=== PATIENT | male | born 1990 | race Caucasian/White ===

== ENCOUNTER 2020-04-26 10:13 | Emergency (ER) | payer MEDICAID, SELFPAY ==
[2020-04-26 10:14] VITALS: BP 138/94; PULSE 108; RESP 17; TEMP 36.9; O2SAT 97; BMI 24.5
--- NOTE | 2020-04-26 10:33 | RAD_ITS ---
STUDY: X-RAY CHEST REASON FOR EXAM: Male, 30 years old. Patient states that he was released from correction 14 days ago. Started sun day having headaches, cough, change in smell -- Patient states that the shelter house would not accept him and now needs to be tested or PO states he will be going back to correction. -- needs paperwork faxed to his PO TECHNIQUE: Single AP portable view of the chest. COMPARISON: None. FINDINGS: The lungs are clear and expanded. There is no demonstrated pleural abnormality. Normal size heart. Normal mediastinum and kinga. Normal visualized pulmonary arteries. Normal visualized aortic arch and descending thoracic aorta. Normal visualized thoracic spine. Normal visualized ribs, clavicles, and shoulders. There is no demonstrated abnormality of the visualized soft tissue structures of the upper abdomen. RAD/Chest 1 View (Portable) IMPRESSION: Normal x-ray examination of the chest. Electronically Signed: Harish Nieto, at 11:19 EDT , Service support ,
--- NOTE | 2020-04-26 10:35 | ED.DCSUM_ITS ---
- ER Visit Summary Date of Service: 04/26/20 Chief Complaint: Needs COVID testing History of Present Illness: The patient is a 30 M presenting stating that he needs to be tested for COVID. Patient was released from correction on April 12. He has been in quarantine at his grandparents house since that time. He was scheduled to go to a retirement house today. He started having symptoms of mild headache, cough, diarrhea, decreased smell, and subjective fever on Thursday. He states the retirement house will not take him without a COVID test. He denies shortness of breath. He states while in correction he worked in [employer] and was exposed to confirmed cases of COVID. Physical Examination: Vitals are stable. Patient is afebrile. Alert no acute distress. 97% on room air. HEENT exam is unremarkable. Neck is supple. Lungs are clear and equal bilaterally. Heart is regular rate and rhythm. Abdomen is soft nontender nondistended. Extremities are unremarkable. Skin is warm and dry. Remainder of exam is unremarkable. Emergency Department Course and Treatment: Chest xray shows normal x-ray examination of the chest. COVID negative. Despite negative COVID testing, high suspicion for COVID. He was given Tylenol. On reevaluation he is resting comfortably. His pulse ox is 98% on room air. He will be discharged with the police. Disposition: Discharge Impression: Viral syndrome, suspect COVID This note was generated with [employer] dictation software. It may contain incorrect words, spelling, and punctuation that were not noted in review of the chart prior to signing ED Disposition - Plan for ED Patient: Referrals: Care Physician,No Primary [Primary Care Provider] -
--- NOTE | 2020-04-26 10:44 | ED.RN ---
PT REQUESTING THAT WE CONTACT HIS PO, ATTEMPTED TO CALL BUT NO ANSWER. LEFT A MESSAGE FOR KAVITA WALTER TO CALL THE EMERGENCY DEPARTMENT. PHONE NUMBER FOR KAVITA [phone], FAX [phone].
--- NOTE | 2020-04-26 13:43 | ED.DEP ---
ED Disposition - Plan for ED Patient: Instructions: ED Upper Resp Infec No Abx Tx Referrals: Care Physician,No Primary [Primary Care Provider] -
[2020-04-26] MEDS: Acetaminophen 500 MG Tablet 1000 MG PO (14:45)
[2020-04-26 14:46] VITALS: BP 157/98; PULSE 79; RESP 18; O2SAT 99
--- NOTE | 2020-04-26 15:03 | NURSING ---
FAXED COVID TEST AND DR JALLOH TO [facility] [employer].
== END 2020-04-26 14:00 | disposition home or self-care (01) ==
PROVIDERS: Emergency Provider Emergency Medicine
DX: B34.9 Viral infection, unspecified (principal); Z20.828 Contact with and (suspected) exposure to other viral communicable diseases
CPT/HCPCS: 71045; 87635; 99283; U0004

== ENCOUNTER 2020-07-22 22:11 | Emergency (ER) | payer MEDICAID, SELFPAY ==
[2020-07-22 22:11] VITALS: BP 145/90; PULSE 105; RESP 16; TEMP 36.3; O2SAT 95; BMI 25.1
--- NOTE | 2020-07-22 22:37 | ED.DCSUM_ITS ---
- ER Visit Summary Date of Service: 07/22/20 Chief Complaint: Abdominal pain History of Present Illness: The patient is a 30 M presenting with abdominal pain and rectal pain. Patient states this has been intermittent over the past 6 years. He states he gets episodes where he has severe lower abdominal pain and rectal pain. He states the pain is worsened with eating. He has had constipation. Denies blood in his stool. Denies history of anal sex or foreign bodies. Denies discharge or rash. Denies fever. Denies nausea or vomiting. Denies other complaints. Physical Examination: Vitals are stable. Patient is afebrile. Alert no acute distress. HEENT exam is unremarkable. Neck is supple. Lungs are clear and equal bilaterally. Heart is regular rate and rhythm. Abdomen is soft suprapubic tenderness with no guarding or rebound : No testicular tenderness, normal lie, no rash Rectal: unremarkable, normal tone, no external hemorrhoids or abscess Extremities are unremarkable. Skin is warm and dry. Remainder of exam is unremarkable. Emergency Department Course and Treatment: Patient was given IV fluids, Bentyl, Zofran. CT abdomen pelvis is pending and will be checked out to the oncoming physician. Disposition: pending Impression: Abdominal pain This note was generated with [employer] dictation software. It may contain incorrect words, spelling, and punctuation that were not noted in review of the chart prior to signing ED Disposition - Plan for ED Patient: Referrals: Care Physician,No Primary [Primary Care Provider] -
[2020-07-22 22:50] LABS: Absolute Lymphocyte Count 3.36 X10^3/uL (0.83-4.51); Absolute Neutrophil Count 4.5 X10^3/uL (2.0-7.7); Basophil# 0.03 X10^3/uL; Basophil% 0.3 % (0-1); Eosinophil# 0.14 X10^3/uL; Eosinophils% 1.6 % (0-5); Hematocrit 45.5 % (40-54); Hemoglobin 15.2 g/dL (13.0-16.5); Lymphocyte # 3.36 X10^3/ul (4.0); Lymphocyte % 38.2 % (19-41); Mean Corp Hgb Conc 33.4 g/dL (32-36); Mean Corpuscular Hgb 30.5 pg (27.0-32.0); Mean Corpuscular Volume 91.4 fL (80-94); Mean Platelet Vol. 9.1 fl (6.2-12.0); Monocyte# 0.72 X10^3/uL; Monocyte% 8.2 % (0-10); NRBC Flagged by Analyzer 0 % (0-5); Neutrophil # 4.53 X10^3/uL (2.7-7.7); Neutrophil % 51.5 % (47-70); Platelet Count 278 K/mm3 (150-450); RBC Distribution Width SD 40.2 fl (35.1-43.9); Red Blood Count 4.98 M/mm3 (4.6-6.2); White Blood Count 8.8 K/mm3 (4.4-11.0)
[2020-07-22] MEDS: Ondansetron 4 MG/2 ML Vial IV (22:52)
[2020-07-22] MEDS: 0.9% Normal Saline 1,000 ML 1000 ML IV (22:52)
[2020-07-22 23:02] LABS: ALB/GLOB Ratio 1.4 RATIO (0.9-2.4); AST(SGOT) 40 U/L (15-37); Alanine Aminotransfer ALT/SGPT 47 U/L (16-61); Alkaline Phosphatase 82 U/L (45-117); Anion Gap 5 (5-15); BUN 18 mg/dL (7-18); BUN/Creat Ratio 13.5 RATIO (10-20); Calcium,Total 8.1 mg/dL (8.5-10.1); Chloride 110 mmol/L (98-107); Creatinine, Serum 1.33 mg/dL (0.70-1.30); EST Glomerular Filtration Rate 68 mL/min (>60); Est Glom Filt Rate - Afr Amer 82 mL/min (>60); Estimated Creatinine Clearance 82.69 ml/min; Globulin 2.9 g/dL (2.2-4.2); Glucose 95 mg/dL (74-106); Potassium 3.3 mmol/L (3.5-5.1); Protein, Total 6.9 g/dL (6.4-8.2); Sodium Level 141 mmol/L (136-145)
[2020-07-22 23:15] LABS: Bacteria 0 SEEN /hpf (None Seen); Color, Urine Yellow (Yellow); Glucose, Dipstick Normal (Normal); Ketone-Dipstick Negative (Negative); Leukocyte Esterase-Dipstick Negative /ul (Negative); Mucous, Urine 0 SEEN /hpf (<or=2+); Nitrite-Dipstick Negative (Negative); Occult Blood-Urine Negative /ul (Negative); Protein-Dipstick Negative (Negative); Red Blood Cells-Urine 0 SEEN /hpf (0-5); Squamous Epithelial Cells - UA 0 SEEN /hpf (0-5); Urine Bilirubin Dipstick Negative (Negative); Urine Clarity Clear (Clear); Urine Urobilinogen Normal (Normal); White Blood Cells 0 SEEN /hpf (0-5)
[2020-07-23 01:09] VITALS: BP 110/52; PULSE 81; RESP 15; O2SAT 98
[2020-07-23 02:00] VITALS: BP 110/52; PULSE 81; RESP 15; O2SAT 98
--- NOTE | 2020-07-23 22:34 | CT_ITS ---
STUDY: CT ABDOMEN AND PELVIS WITH CONTRAST REASON FOR EXAM: Male, 30 years old. RECTAL PAIN X 6 YEARS RADIATION DOSAGE (If Supplied By Facility): CTDIvol = ( 12.32 ) mGy, DLP = ( 451.59 ) mGycm TECHNIQUE: Transaxial images were obtained from the dome of the diaphragm to the symphysis pubis without oral contrast. Oral and amp; IV Gastrografin and amp; 50mL Isovue-370 was administered. Sagittal and coronal images were reconstructed. Individualized dose optimization techniques were used for this CT. COMPARISON: None. FINDINGS: The visualized lung bases are unremarkable. The visualized portions of the heart are within normal limits. Normal liver. Normal gallbladder and extrahepatic biliary system. Normal spleen. Normal pancreas. Normal bilateral adrenal glands. Normal right kidney. Normal left kidney. Normal visualized stomach. Normal small intestine. Normal colon. There is non-visualization of the appendix. Normal abdominal aorta. Normal inferior vena cava. Normal retroperitoneum. Normal urinary bladder. Normal abdominal wall. Normal osseous structures. CT/Abdomen/Pelvis WITH Contrast IMPRESSION: Normal enhanced CT of the abdomen and pelvis. Electronically Signed: Andrea Renteria, at 1:03 EDT Tel , Service support ,
== END 2020-07-23 02:00 | disposition home or self-care (01) ==
PROVIDERS: Emergency Provider Emergency Medicine
DX: R10.30 Lower abdominal pain, unspecified (principal); K62.89 Other specified diseases of anus and rectum; Z72.0 Tobacco use
CPT/HCPCS: 74177; 80053; 81001; 85025; 96361; 96374; 99283; Q9967; A4216; J2405

== ENCOUNTER 2020-07-29 15:48 | Emergency (ER) | payer MEDICAID, SELFPAY ==
[2020-07-29 15:49] VITALS: BP 127/41; PULSE 97; RESP 16; TEMP 36.2; O2SAT 100; BMI 24.3
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
[2020-07-29] MEDS: hydrOXYzine PAM 25 MG Capsule PO (18:15)
== END 2020-07-29 18:39 | disposition home or self-care (01) ==
PROVIDERS: Emergency Provider Emergency Medicine; PCP Family Medicine
DX: F41.1 Generalized anxiety disorder (principal); F17.200 Nicotine dependence, unspecified, uncomplicated; Z63.4 Disappearance and death of family member
CPT/HCPCS: 99283